=== PATIENT | female | born 1995 | race Caucasian/White ===

== ENCOUNTER 2016-08-11 05:53 | Inpatient (IN) | payer OTHER ==
[~2016-08-11] VITALS: Ht 165.1 cm; Wt 91.2 kg
[2016-08-12 04:18] LABS: HEMOGLOBIN 8.9 gm/dl (12.3-15.3)
[2016-08-13] MEDS ORDERED: COLACE 100MG C100 MG PO (11:05)
== END 2016-08-13 12:41 | disposition home or self-care (01) | DRG 766 ==
LOC: OB 05:53
PROVIDERS: ADMIT Obstetrics & Gynecology
PROC: 3E0234Z Introduction of Serum, Toxoid and Vaccine into Muscle, Percutaneous Approach (ICD-10-PCS; 2016-08-11)
PROC: 10D00Z1 Extraction of Products of Conception, Low, Open Approach (ICD-10-PCS; principal; 2016-08-11 07:30)
DX: O34.211 Maternal care for low transverse scar from previous cesarean delivery (principal); Z3A.39 39 weeks gestation of pregnancy; Z23 Encounter for immunization; O75.89 Other specified complications of labor and delivery; Z37.0 Single live birth; Z79.899 Other long term (current) drug therapy
CPT/HCPCS: 36415; 81001; 82800; 85014; 85018; 85025; 90707; C9113; J0690; J2274; J2405; J2590; J2765; J3010; J7120

== ENCOUNTER 2020-08-26 21:55 | Emergency (ER) | payer OTHER ==
[~2020-08-26 21:55] MED LIST: COLACE 100MG C100 MG PO; IBUPROFEN800 MG PO
[2020-08-27 01:27] LABS: HEMOGLOBIN 12.7 gm/dl (12.3-15.3); RED BLOOD COUNT 4.64 M/UL (4.00-5.10); WHITE BLOOD COUNT 12.4 K/UL (4.5-11.0)
[2020-08-27 01:49] LABS: BUN/CREATININE RATIO 16 (0-10)
== END 2020-08-27 03:05 | disposition home or self-care (01) ==
LOC: ER1 21:55
PROVIDERS: Physician Assistant
DX: O20.0 Threatened abortion (principal); Z90.49 Acquired absence of other specified parts of digestive tract; Z3A.01 Less than 8 weeks gestation of pregnancy
CPT/HCPCS: 80053; 81001; 84702; 84703; 85025; 86900; 86901; 99284

== ENCOUNTER 2021-02-16 14:19 | Outpatient (CLI) | payer OTHER ==
[~2021-02-16] VITALS: Ht 165.1 cm; Wt 98.4 kg
== END 2021-02-16 16:51 | disposition home or self-care (01) ==
LOC: GENOP 14:19
DX: O99.891 Other specified diseases and conditions complicating pregnancy (principal); M54.50 Low back pain, unspecified; O21.2 Late vomiting of pregnancy; O13.3 Gestational [pregnancy-induced] hypertension without significant proteinuria, third trimester; Z3A.31 31 weeks gestation of pregnancy
CPT/HCPCS: 81001; 96365; J2550; J7120

== ENCOUNTER 2021-04-10 05:31 | Inpatient (IN) | payer OTHER ==
[~2021-04-10] VITALS: Ht 165.1 cm; Wt 101.2 kg
[2021-04-10 06:54] LABS: HEMOGLOBIN 10.3 gm/dl (12.3-15.3); RED BLOOD COUNT 4.3 M/UL (4.00-5.10); WHITE BLOOD COUNT 10.4 K/UL (4.5-11.0)
[2021-04-10] MEDS ORDERED: HYDROCODON-ACE1 EAC4 PO (07:56)
[2021-04-10] MEDS ORDERED: IBUPROFEN600 MG PO (07:56)
[2021-04-10] MEDS ORDERED: DOCUSATE SODIU100 MG PO (07:56)
[2021-04-11 05:45] LABS: HEMOGLOBIN 10.3 gm/dl (12.3-15.3)
== END 2021-04-11 15:51 | disposition home or self-care (01) | DRG 787 ==
LOC: OB 05:31
PROVIDERS: ADMIT Obstetrics & Gynecology
PROC: 10D00Z1 Extraction of Products of Conception, Low, Open Approach (ICD-10-PCS; principal; 2021-04-10 07:30)
DX: O34.211 Maternal care for low transverse scar from previous cesarean delivery (principal); O99.354 Diseases of the nervous system complicating childbirth; Z20.822 Contact with and (suspected) exposure to COVID-19; O99.02 Anemia complicating childbirth; D64.9 Anemia, unspecified; O26.893 Other specified pregnancy related conditions, third trimester; G43.909 Migraine, unspecified, not intractable, without status migrainosus; Z37.0 Single live birth; Z3A.39 39 weeks gestation of pregnancy; Z82.49 Family history of ischemic heart disease and other diseases of the circulatory system; Z82.5 Family history of asthma and other chronic lower respiratory diseases; Z81.8 Family history of other mental and behavioral disorders; Z90.49 Acquired absence of other specified parts of digestive tract; Z98.890 Other specified postprocedural states
CPT/HCPCS: 81001; 82800; 85014; 85018; 85025; C9113; J0690; J1885; J2210; J2274; J2370; J2405; J2590; J3010; J7120

== ENCOUNTER → 2021-08-20 | Outpatient (CLI) | payer OTHER ==
[~2021-08-20] MED LIST changes: +DOCUSATE SODIU100 MG PO; +HYDROCODON-ACE1 EAC4 PO; +IBUPROFEN600 MG PO
== END ==
LOC: KOH-I 09:54
DX: M25.512 Pain in left shoulder (principal); R07.89 Other chest pain; M79.622 Pain in left upper arm; M54.2 Cervicalgia
CPT/HCPCS: 72040; 73030; 73080

== ENCOUNTER 2021-12-15 10:56 | Emergency (ER) | payer OTHER ==
[2021-12-15 12:11] LABS: HEMOGLOBIN 11.5 gm/dl (12.3-15.3); RED BLOOD COUNT 4.85 M/UL (4.00-5.10); WHITE BLOOD COUNT 7.9 K/UL (4.5-11.0)
[2021-12-15 12:41] LABS: BUN/CREATININE RATIO 10 (0-10)
[2021-12-15] MEDS ORDERED: MACROBID 100 M100 M1 PO (17:36)
== END 2021-12-15 17:41 | disposition home or self-care (01) ==
LOC: ER1 10:56
PROVIDERS: Physician Assistant
DX: O23.41 Unspecified infection of urinary tract in pregnancy, first trimester (principal); N39.0 Urinary tract infection, site not specified; Z3A.01 Less than 8 weeks gestation of pregnancy
CPT/HCPCS: 74181; 76817; 80053; 81001; 84702; 85025; 87086; 99284